=== PATIENT | female | born 1965 | race Caucasian/White ===

== ENCOUNTER → 2017-03-31 | Outpatient (CLI) | payer BC ==
--- NOTE | 2017-04-03 09:59 | MM ---
Reason for exam: screening (asymptomatic). Last mammogram was performed 1 year and 1 month ago. History: Patient is postmenopausal, history of other cancer, and had first child at age 33. Family history of breast cancer in maternal grandmother at age 60. Took hormonal contraceptives for 11 years beginning at age 19. Physical Findings: A clinical breast exam by your physician is recommended on an annual basis and results should be correlated with mammographic findings. MG Screening Mammo w CAD Bilateral CC and MLO view(s) were taken. Prior study comparison: February 23, 2016, bilateral MG screening mammo w CAD. November 05, 2014, bilateral MG screening mammo w CAD. The breast tissue is heterogeneously dense. This may lower the sensitivity of mammography. Finding: There is questionable architectural distortion in the right breast. New finding since February 23, 2016 and November 05, 2014. ASSESSMENT: Incomplete: need additional imaging evaluation, BI-RAD 0 RECOMMENDATION: Special view mammogram of the right breast. If lesion persists on supplemental views, image directed ultrasound is recommended. [facility] will attempt to contact patient to return for supplemental views and ultrasound if indicated.
== END | disposition home or self-care (01) ==
LOC: RADMAMWWP 08:19
PROVIDERS: ATTEND Obstetrics & Gynecology
DX: Z12.31 Encounter for screening mammogram for malignant neoplasm of breast (principal); Z80.3 Family history of malignant neoplasm of breast

== ENCOUNTER → 2017-04-04 | Outpatient (CLI) | payer BC ==
--- NOTE | 2017-04-04 10:49 | MM ---
Reason for exam: additional evaluation requested from abnormal screening. Last mammogram was performed less than 1 month ago. History: Patient is postmenopausal, history of other cancer, and had first child at age 33. Family history of breast cancer in maternal grandmother at age 60. Took hormonal contraceptives for 11 years beginning at age 19. Physical Findings: Nurse did not find any significant physical abnormalities on exam. MG Work Up Mamm w CAD RT Spot compression CC and spot compression MLO view(s) were taken of the right breast. Prior study comparison: March 31, 2017, bilateral MG screening mammo w CAD. February 23, 2016, bilateral MG screening mammo w CAD. November 05, 2014, bilateral MG screening mammo w CAD. August 21, 2013, bilateral digital screening mammo w/CAD. The breast tissue is heterogeneously dense. This may lower the sensitivity of mammography. No distinct lesion persists. These results were verbally communicated with the patient and result sheet given to the patient on 04/04/17. ASSESSMENT: Negative, BI-RAD 1 RECOMMENDATION: Return to routine screening mammogram schedule for both breasts.
== END | disposition home or self-care (01) ==
LOC: RADMAMWWP 08:09
PROVIDERS: ATTEND Obstetrics & Gynecology
DX: R92.8 Other abnormal and inconclusive findings on diagnostic imaging of breast (principal)

== ENCOUNTER → 2018-06-25 | Outpatient (CLI) | payer BC ==
--- NOTE | 2018-06-27 12:07 | MM ---
Reason for exam: screening (asymptomatic). Last mammogram was performed 1 year and 3 months ago. History: Patient is postmenopausal, history of other cancer, and had first child at age 33. Family history of breast cancer in maternal grandmother at age 60. Took hormonal contraceptives for 11 years beginning at age 19. Physical Findings: A clinical breast exam by your physician is recommended on an annual basis and results should be correlated with mammographic findings. MG 3D Screening Mammo W/Cad Bilateral CC and MLO view(s) were taken. Prior study comparison: April 04, 2017, right breast MG work up mamm w CAD RT. March 31, 2017, bilateral MG screening mammo w CAD. The breast tissue is heterogeneously dense. This may lower the sensitivity of mammography. Right lateral middle depth distortion. Left posterior depth 1.6cm upper inner quadrant mass 6.5-7.5cm from nipple. Left slightly medial posterior depth asymmetry. ASSESSMENT: Incomplete: need additional imaging evaluation, BI-RAD 0 RECOMMENDATION: Special view mammogram of both breasts. If lesion persists on supplemental views, image directed ultrasound is recommended. [facility] will attempt to contact patient to return for supplemental views and ultrasound if indicated.
== END | disposition home or self-care (01) ==
LOC: RADMAMWWP 07:53
PROVIDERS: ATTEND Obstetrics & Gynecology
DX: Z12.31 Encounter for screening mammogram for malignant neoplasm of breast (principal); Z80.3 Family history of malignant neoplasm of breast
CPT/HCPCS: 77063; 77067

== ENCOUNTER → 2018-07-17 | Outpatient (CLI) | payer BC ==
--- NOTE | 2018-07-17 11:10 | MM ---
Reason for exam: additional evaluation requested from abnormal screening. Last mammogram was performed 1 month ago. History: Patient is postmenopausal, history of other cancer, and had first child at age 33. Family history of breast cancer in maternal grandmother at age 60. Took hormonal contraceptives for 11 years beginning at age 19. Physical Findings: Nurse did not find any significant physical abnormalities on exam. MG Work Up Mamm w CAD BILAT Bilateral spot compression CC view(s) were taken. CC view(s) were taken of the right breast. Spot compression MLO and spot compression ML view(s) were taken of the left breast. Prior study comparison: June 25, 2018, bilateral MG 3d screening mammo w/cad. April 04, 2017, right breast MG work up mamm w CAD RT. There is a 17 mm oval mass in the left breast upper inner posterior middle position. No distinct lesion persists. ASSESSMENT: Incomplete: need additional imaging evaluation, BI-RAD 0 RECOMMENDATION: Ultrasound of the left breast.
--- NOTE | 2018-07-17 11:23 | USB ---
History: Patient is postmenopausal, history of other cancer, and had first child at age 33. Family history of breast cancer in maternal grandmother at age 60. Took hormonal contraceptives for 11 years beginning at age 19. US Breast Workup Limited LT Left limited breast ultrasound including focal area of concern, retroareolar and axilla demonstrates at the 10 o'clock position a 1.0 x 0.9 x 0.5 cm oval irregular mixed hypoechoic lesion. These results were verbally communicated with the patient and result sheet given to the patient on 07/17/18. ASSESSMENT: Suspicious, BI-RAD 4 RECOMMENDATION: Ultrasound core biopsy of the left breast. Called Dr. Flores with mammographic findings and has scheduled an appointment for the patient for 07/23/18 at 1:[address] Busch for consultation only. PRELIMINARY REPORT CALLED AND FAXED TO DR. BUSCH ON 07/17/18.
== END ==
LOC: RADMAMWWP 08:52
PROVIDERS: ATTEND Obstetrics & Gynecology
DX: R92.8 Other abnormal and inconclusive findings on diagnostic imaging of breast (principal)
CPT/HCPCS: 77066

== ENCOUNTER → 2018-08-07 | Day surgery (SDC) | payer BC ==
[2018-08-07 13:19] VITALS: TEMP 98.3; BMI 30.2
--- NOTE | 2018-08-07 15:04 | USB ---
EXAMINATION TYPE: US biopsy breast VAD LT, Postbiopsy MG diagnostic mammo LT wo CAD DATE OF EXAM: 08/07/2018 CLINICAL HISTORY: 52-year-old female R92.8 ABN MAMMO. TECHNIQUE: Ultrasound guided core biopsy of the left breast. COMPARISON: 07/17/2018 and 06/25/2018 FINDINGS: The procedure of ultrasound guided core biopsy was explained to the patient. Benefits, alternatives, and risks were discussed. An informed consent was then obtained. The patient was placed in supine positioning for imaging and for the procedure. The overlying skin was prepped and draped in usual sterile fashion. Lidocaine buffered with bicarbonate was used as anesthetic into the skin and subcutaneous tissue up to area of concern in the 10:00 left breast. Under ultrasound guidance, a 13-gauge vacuum-assisted biopsy gun device was used to obtain 5 core samples. Following this, a coil clip was left in lesion. The patient tolerated the procedure well without any immediate complication. The patient was kept in the radiology department for short stay after the procedure and then discharged home in stable condition. Post procedure mammogram shows coil clip at the site of mammographic focal asymmetry. IMPRESSION: Successful, uncomplicated ultrasound guided core biopsy of area of concern in the 10:00 left breast corresponding to the mammographic focal asymmetry, full pathology results to follow. 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 Recommendation Follow up ultrasound of the left breast in 6 months. MARY
[2018-08-07 15:41] VITALS: BP 144/85; PULSE 69
== END | disposition home or self-care (01) ==
LOC: RADUSWWP 12:49
PROVIDERS: ATTEND Surgery
DX: D24.2 Benign neoplasm of left breast (principal); N60.82 Other benign mammary dysplasias of left breast
CPT/HCPCS: 77065; 19083; A4648; J2001; 88305

== ENCOUNTER → 2019-02-27 | Outpatient (CLI) | payer BC ==
--- NOTE | 2019-02-27 08:33 | MM ---
Reason for exam: follow-up at short interval from prior study. Last mammogram was performed 7 months ago. History: Patient is postmenopausal, history of other cancer, and had first child at age 33. Family history of breast cancer in maternal grandmother at age 60. Benign US biopsy breast VAD LT of the left breast, August 07, 2018. Took hormonal contraceptives for 11 years beginning at age 19. Physical Findings: Nurse did not find any significant physical abnormalities on exam. MG 3D Diag Mammo W/Cad LT CC and MLO view(s) were taken of the left breast. Prior study comparison: August 07, 2018, left breast MG diagnostic mammo LT wo CAD. July 17, 2018, bilateral MG work up mamm w CAD BILAT. The breast tissue is heterogeneously dense. This may lower the sensitivity of mammography. There are stable left upper inner quadrant masses at middle and posterior depth. No suspicious abnormality. Left biopsy marker noted. These results were verbally communicated with the patient and result sheet given to the patient on 02/27/19. ASSESSMENT: Benign, BI-RAD 2 RECOMMENDATION: Return to routine screening mammogram schedule for both breasts. Back on schedule for May 2019.
== END | disposition home or self-care (01) ==
LOC: RADMAMWWP 07:03
PROVIDERS: ATTEND Obstetrics & Gynecology
DX: R92.8 Other abnormal and inconclusive findings on diagnostic imaging of breast (principal)
CPT/HCPCS: 77061; 77065

== ENCOUNTER → 2019-07-15 | Outpatient (CLI) | payer BC ==
--- NOTE | 2019-07-16 08:47 | MM ---
Reason for exam: screening (asymptomatic). Last mammogram was performed 5 months ago. History: Patient is postmenopausal, history of other cancer, and had first child at age 33. Family history of breast cancer in maternal grandmother at age 60. Benign US biopsy breast VAD LT of the left breast, August 07, 2018. Took hormonal contraceptives for 11 years beginning at age 19. Physical Findings: A clinical breast exam by your physician is recommended on an annual basis and results should be correlated with mammographic findings. MG 3D Screening Mammo W/Cad Bilateral CC and MLO view(s) were taken. Prior study comparison: February 27, 2019, left breast MG 3d diag mammo w/cad LT. August 07, 2018, left breast MG diagnostic mammo LT wo CAD. The breast tissue is heterogeneously dense. This may lower the sensitivity of mammography. Previous mammotome biopsy in the left breast at chronic nodularity. There is no discrete abnormality. ASSESSMENT: Benign, BI-RAD 2 RECOMMENDATION: Routine screening mammogram of both breasts in 1 year.
== END | disposition home or self-care (01) ==
LOC: RADMAMWWP 10:52
PROVIDERS: ATTEND Obstetrics & Gynecology
DX: Z12.31 Encounter for screening mammogram for malignant neoplasm of breast (principal)
CPT/HCPCS: 77063; 77067

== ENCOUNTER → 2020-08-27 | Outpatient (CLI) | payer BC ==
--- NOTE | 2020-08-28 11:15 | MM ---
Reason for exam: screening (asymptomatic). Last mammogram was performed 1 year and 1 month ago. History: Patient is postmenopausal, history of other cancer, and had first child at age 33. Family history of breast cancer in maternal grandmother at age 60. Benign US biopsy breast VAD LT of the left breast, August 07, 2018. Took hormonal contraceptives for 11 years beginning at age 19. Physical Findings: A clinical breast exam by your physician is recommended on an annual basis and results should be correlated with mammographic findings. MG 3D Screening Mammo W/Cad Bilateral CC and MLO view(s) were taken. Prior study comparison: July 15, 2019, bilateral MG 3d screening mammo w/cad. February 27, 2019, left breast MG 3d diag mammo w/cad LT. The breast tissue is heterogeneously dense. This may lower the sensitivity of mammography. Previous mammotome biopsy in the left breast. No significant changes when compared with prior studies. ASSESSMENT: Benign, BI-RAD 2 RECOMMENDATION: Routine screening mammogram of both breasts in 1 year.
== END ==
LOC: RADMAMWWP 13:52
PROVIDERS: ATTEND Obstetrics & Gynecology
DX: Z12.31 Encounter for screening mammogram for malignant neoplasm of breast (principal); Z78.0 Asymptomatic menopausal state; Z80.3 Family history of malignant neoplasm of breast
CPT/HCPCS: 77063; 77067

== ENCOUNTER → 2020-08-27 | Outpatient (CLI) | payer BC ==
--- NOTE | 2020-08-27 15:49 | US ---
EXAMINATION TYPE: US carotid duplex BILAT DATE OF EXAM: 08/27/2020 COMPARISON: NONE CLINICAL HISTORY: I65.29 Occlusion and stenosis of unspecified carot. stenosis EXAM MEASUREMENTS: RIGHT: Peak Systolic Velocity (PSV) cm/sec ----- Right CCA: 110 ----- Right ICA: 147 ----- Right ECA: 116 ICA/CCA ratio: 1.3 RIGHT: End Diastole cm/sec ----- Right CCA: 25.8 ----- Right ICA: 31.7 ----- Right ECA: 12.0 LEFT: Peak Systolic Velocity (PSV) cm/sec ----- Left CCA: 132 ----- Left ICA: 122 ----- Left ECA: 121 ICA/CCA ratio: .9 LEFT: End Diastole cm/sec ----- Left CCA: 38.6 ----- Left ICA: 32.6 ----- Left ECA: 16.3 VERTEBRALS (direction of flow): Right Vertebral: Antegrade Left Vertebral: Antegrade Rhythm: Normal No significant stenosis seen No significant plaque and grayscale images. IMPRESSION: No hemodynamically significant stenosis seen in either internal carotid artery. Criteria for Assigning % of Stenosis / Diameter reduction (Estimation based on the indirect measurements of the internal carotid artery velocities (ICA PSV). 1. Normal (no stenosis)=ICA PSV < 125 cm/s: ratio < 2.0: ICA EDV<40 cm/s. 2. Less than 50% stenosis=ICA PSV < 125 cm/s: ratio < 2.0: ICA EDV<40 cm/s. 3. 50 to 69% stenosis=ICA PSV of 125 to 230 cm/s: ration 2.0 ? 4.0: ICA EDV 40-100 cm/s. 4. Greater than 70% stenosis to near occlusion= ICA PSV > 230 cm/s: ratio > 4.0: ICA EDV > 100 cm/s. 5. Near occlusion= ICA PSV velocities may be low or undetectable: variable ratio and ICA EDV. 6. Total occlusion=unable to detect flow.
== END ==
LOC: RADUSWWP 13:50
PROVIDERS: ATTEND Family Medicine
DX: I65.29 Occlusion and stenosis of unspecified carotid artery (principal)
CPT/HCPCS: 93880

== ENCOUNTER → 2021-08-31 | Outpatient (CLI) | payer BC ==
--- NOTE | 2021-09-01 12:31 | MM ---
Reason for exam: screening (asymptomatic). Last mammogram was performed 1 year ago. History: Patient is postmenopausal, history of other cancer, and had first child at age 33. Family history of breast cancer in maternal grandmother at age 60. Benign US biopsy breast VAD LT of the left breast, August 07, 2018. Took hormonal contraceptives for 11 years beginning at age 19. Physical Findings: A clinical breast exam by your physician is recommended on an annual basis and results should be correlated with mammographic findings. MG 3D Screening Mammo W/Cad Bilateral CC and MLO view(s) were taken. Prior study comparison: July 15, 2019, bilateral MG 3d screening mammo w/cad. February 27, 2019, left breast MG 3d diag mammo w/cad LT. June 25, 2018, bilateral MG 3d screening mammo w/cad. The breast tissue is heterogeneously dense. This may lower the sensitivity of mammography. Previous mammotome biopsy in the left breast. There is chronic nodularity in the left breast. No significant changes when compared with prior studies. ASSESSMENT: Benign, BI-RAD 2 RECOMMENDATION: Routine screening mammogram of both breasts in 1 year.
== END | disposition home or self-care (01) ==
LOC: RADMAMWWP 07:00
PROVIDERS: ATTEND Obstetrics & Gynecology
DX: Z12.31 Encounter for screening mammogram for malignant neoplasm of breast (principal); Z80.3 Family history of malignant neoplasm of breast
CPT/HCPCS: 77063; 77067

== ENCOUNTER → 2022-09-30 | Outpatient (CLI) | payer BC ==
--- NOTE | 2022-09-30 17:07 | CA ---
Transthoracic Echo Report Name: Timothy Muñoz Age: 56 Gender: F : 1965 Exam Date: 09/30/2022 11:31 Exam Location: [place] [facility] Ht (in): 66 Wt (lb): 185 Ordering Physician: Timothy Nevarez DO Attending/Referring Phys: Timothy Nevarez DO Newswriter Juancho Gonzalez [facility] Procedure CPT: Indications: R01.1 Cardiac Hx: HTN; High Cholesterol. Technical Quality: Fair Contrast 1: Total Dose (mL): Contrast 2: Total Dose (mL): MEASUREMENTS (Male / Female) Normal Values 2D ECHO LV Diastolic Diameter PLAX 3.9 cm 4.2 - 5.9 / 3.9 - 5.3 cm LV Systolic Diameter PLAX 2.8 cm LV Fractional Shortening PLAX 28.0 % IVS Diastolic Thickness 1.0 cm 0.6 - 1.0 / 0.6 - 0.9 cm IVS Systolic Thickness 1.2 cm LVPW Diastolic Thickness 1.0 cm 0.6 - 1.0 / 0.6 - 0.9 cm LVPW Systolic Thickness 1.3 cm LV Relative Wall Thickness 0.5 RV Internal Dim ED PLAX 3.2 cm LVOT Diameter 2.0 cm LA Systolic Diameter LX 3.1 cm 3.0 - 4.0 / 2.7 - 3.8 cm LV Diastolic Volume MOD BP 73.5 cm??? 67 - 155 / 56 - 104 cm??? LV Systolic Volume MOD BP 27.9 cm??? 22 - 58 / 19 - 49 cm??? LV Ejection Fraction MOD BP 62.1 % >= 55 % LV Stroke Volume MOD BP 45.6 cm??? LV Diastolic Volume MOD 4C 78.9 cm??? LV Systolic Volume MOD 4C 18.5 cm??? LV Ejection Fraction MOD 4C 76.6 % LV Stroke Volume MOD 4C 60.5 cm??? LV Diastolic Length 4C 7.3 cm LV Systolic Length 4C 5.6 cm LV Diastolic Volume MOD 2C 68.1 cm??? LV Systolic Volume MOD 2C 36.0 cm??? LV Ejection Fraction MOD 2C 47.2 % LV Stroke Volume MOD 2C 32.1 cm??? LV Diastolic Length 2C 7.4 cm LV Systolic Length 2C 6.7 cm Ascending Aorta Diameter 2.1 cm M-MODE Aortic Root Diameter MM 2.4 cm LA Systolic Diameter MM 3.3 cm LA Ao Ratio MM 1.4 MV E Point Septal Separation 0.3 cm AV Cusp Separation MM 1.5 cm DOPPLER AV Peak Velocity 130.1 cm/s AV Peak Gradient 6.8 mmHg LVOT Peak Velocity 120.6 cm/s LVOT Peak Gradient 5.8 mmHg AV Area Cont Eq pk 2.9 cm??? MV Deceleration Wayne 356.8 cm/s??? Mitral E Point Velocity 94.5 cm/s Mitral A Point Velocity 74.0 cm/s Mitral E to A Ratio 1.3 MV Deceleration Time 264.8 ms MV E' Velocity 7.6 cm/s Mitral E to MV E' Ratio 12.4 TR Peak Velocity 174.4 cm/s TR Peak Gradient 12.2 mmHg Right Ventricular Systolic Press 17.2 mmHg PV Peak Velocity 94.7 cm/s PV Peak Gradient 3.6 mmHg FINDINGS Left Ventricle Left ventricular ejection fraction is estimated at 55-60 %. Borderline left ventricular hypertrophy. Grade 1 diastolic dysfunction. Normal systolic function. Right Ventricle Normal right ventricular size and function. Right Atrium Normal right atrial size. Left Atrium Normal left atrial size. Mitral Valve Structurally normal mitral valve. Trace to mild mitral regurgitation. Aortic Valve Trileaflet aortic valve. Tricuspid Valve Mild tricuspid regurgitation. Pulmonic Valve Trace pulmonic regurgitation. Pericardium Normal pericardium. No pericardial effusion. Aorta Normal size aortic root and proximal ascending aorta. CONCLUSIONS Normal LV systolic function Previewed by: Dr. Porter Proctor MD (Electronically Signed) Final Date: 30 September 2022 17:06
== END | disposition home or self-care (01) ==
LOC: RADECHMAIN 11:16
PROVIDERS: ATTEND Family Medicine
DX: R01.1 Cardiac murmur, unspecified (principal)
CPT/HCPCS: 93306

== ENCOUNTER → 2022-10-07 | Outpatient (CLI) | payer BC ==
--- NOTE | 2022-10-07 08:44 | MM ---
Reason for Exam: Screening (asymptomatic). Last mammogram was performed 1 year(s) and 1 month(s) ago. Patient History: Menarche at age 11. First Full-Term at age 33. Late child-bearing (after 30). Postmenopausal. Other cancer. Hormonal Contraceptives for 11 years from age 19 until age 37. 08/07/2018, Benign Core Biopsy on the left side. Maternal grandmother had breast cancer, age 60. Risk Values: Oumou 5 year model risk: 2.1%. NCI Lifetime model risk: 12.5%. Prior Study Comparison: 07/15/2019 Bilateral Screening Mammogram, [facility]. 08/27/2020 Bilateral Screening Mammogram, [facility]. 08/31/2021 Bilateral Screening Mammogram, [facility]. Tissue Density: The breast tissue is heterogeneously dense. This may lower the sensitivity of mammography. Findings: Analyzed By CAD. Left breast biopsy clip. There is no suspicious group of microcalcifications or new suspicious mass in either breast. Overall Assessment: Negative, BI-RAD 1 Management: Screening Mammogram of both breasts in 1 year. A clinical breast exam by your physician is recommended on an annual basis and results should be correlated with mammographic findings. [facility] will attempt to contact patient to return for supplemental views and ultrasound if indicated. Electronically signed and approved by: Michael Anton DO
== END | disposition home or self-care (01) ==
LOC: RADMAMWWP 07:13
PROVIDERS: ATTEND Family Medicine
DX: Z12.31 Encounter for screening mammogram for malignant neoplasm of breast (principal); Z78.0 Asymptomatic menopausal state; Z80.3 Family history of malignant neoplasm of breast
CPT/HCPCS: 77063; 77067

== ENCOUNTER → 2023-10-20 | Outpatient (CLI) | payer BC ==
--- NOTE | 2023-10-20 13:03 | US ---
EXAMINATION TYPE: US venous doppler duplex LE RT DATE OF EXAM: 10/20/2023 12:54 PM COMPARISON: NONE CLINICAL INDICATION: Female, 57 years old with history of [id number] PAIN IN RT LEG; Intermittent right g roin to knee pain x 3 weeks, worsening within last week; Hx HTN and heart murmur SIDE PERFORMED: Right TECHNIQUE: The lower extremity deep venous system is examined utilizing real time linear array sonog salty with graded compression, doppler sonography and color-flow sonography. VESSELS IMAGED: Common Femoral Vein Deep Femoral Vein Greater Saphenous Vein * Femoral Vein Popliteal Vein Small Saphenous Vein * Proximal Calf Veins (* superficial vessels) Right Leg: Negative for DVT Left Leg: NA IMPRESSION: Grayscale, color doppler, spectral doppler imaging performed of the deep veins of the lo wer extremities. There is normal flow, compressibility, vascular waveforms.
--- NOTE | 2023-10-20 18:20 | XR ---
EXAMINATION TYPE: XR femur 2 views RT DATE OF EXAM: 10/20/2023 Comparison: None Clinical History: 57-year-old female M79.604 Pain in right leg Findings: Mild to moderate degenerative change of the right hip with marginal spurring. No acute fracture, subl uxation, dislocation. There is tricompartmental degenerative spurring noted at the knee without joint effusion. Impression: Mild to moderate right hip OA. Tricompartmental degenerative spurring at the knee. No acute osseous a bnormality seen.
== END | disposition home or self-care (01) ==
LOC: RADUSWWP 12:18
PROVIDERS: ATTEND Family Medicine
DX: M16.11 Unilateral primary osteoarthritis, right hip (principal)

== ENCOUNTER → 2023-12-04 | Outpatient (CLI) | payer BC ==
--- NOTE | 2023-12-05 08:12 | MM ---
Reason for Exam: Screening (asymptomatic). Last mammogram was performed 1 year(s) and 2 month(s) ago. Patient History: Menarche at age 11. First Full-Term at age 33. Late child-bearing (after 30). Postmenopausal. Patient has history of breast feeding. Other cancer. Hormonal Contraceptives for 11 years from age 19 until age 37. 08/07/2018, Benign Core Biopsy on the left side. Maternal grandmother had breast cancer, age 60. Risk Values: Oumou 5 year model risk: 2.2%. NCI Lifetime model risk: 12.2%. Prior Study Comparison: 08/27/2020 Bilateral Screening Mammogram, [facility]. 08/31/2021 Bilateral Screening Mammogram, [facility]. 10/07/2022 Bilateral MG 3D screening mammo w/cad, [facility]. Tissue Density: The breasts are heterogeneously dense, which may obscure small masses. Findings: Analyzed By CAD. There is no suspicious group of microcalcifications or new suspicious mass in either breast. A previous biopsy clip marker in the left breast. Benign calcifications. Overall Assessment: Benign, BI-RAD 2 Management: Screening Mammogram of both breasts in 1 year. . Patient should continue monthly self-breast exams. A clinical breast exam by your physician is recommended on an annual basis. This exam should not preclude additional follow-up of suspicious palpable abnormalities. Note on Oumou scores and lifetime risk: 1. A Oumou score greater than 3% is considered moderate risk. If this is the case, consider specialist referral to assess eligibility for a risk reducing agent. 2. If overall lifetime risk for the development of breast cancer is 20% or higher, the patient may qualify for future screening with alternating mammogram and breast MRI. Electronically signed and approved by: Apolinar Jimenez M.D. Radiologis
== END | disposition home or self-care (01) ==
LOC: RADMAMWWP 13:59
PROVIDERS: ATTEND Obstetrics & Gynecology
DX: Z12.31 Encounter for screening mammogram for malignant neoplasm of breast (principal); Z80.3 Family history of malignant neoplasm of breast; Z78.0 Asymptomatic menopausal state
CPT/HCPCS: 77063; 77067

== ENCOUNTER 2023-12-13 12:50 | Day surgery (SDC) | payer BC ==
[2023-12-13] MEDS ORDERED: LIDOCAINE 1% (10MG/ML) FOR IV START INTRADERMA PRN (13:07)
[2023-12-13 13:20] VITALS: RESP 18; TEMP 98
[2023-12-13] MEDS: LACTATED RINGERS 1,000 ML IV SCH (13:21)
[2023-12-13] MEDS: IV FLUID CONTINUATION 1,000 ML IV ONE (13:22)
[2023-12-13] MEDS ORDERED: PROPOFOL 10 MG/ML 20 ML VIAL IV ONE (13:39)
[2023-12-13] MEDS ORDERED: LIDOCAINE 1% INJ 10MG/ML (20 ML MDV) ONE (13:39)
--- NOTE | 2023-12-13 13:46 | P.PCN ---
Date of Procedure: 12/13/23 Procedure(s) Performed: BRIEF HISTORY: Patient is a 57-year-old, pleasant, white female scheduled for an upper endoscopy as a part of evaluation of longstanding history of GERD. She has been on pantoprazole 40 mg daily for more than 10 years with good relief of the symptoms. PROCEDURE PERFORMED: Esophagogastroduodenoscopy biopsy. PREOPERATIVE DIAGNOSIS: Longstanding history of GERD. IV sedation per anesthesia. PROCEDURE: After informed consent was obtained, the patient was brought into the endoscopy unit. IV sedation was administered by Anesthesia under continuous monitoring. Initially the Olympus GIF-140 video endoscope was inserted into the mouth. Esophagus intubated without any difficulty. It was gradually advanced into the stomach and duodenum and carefully examined. The bulb and the second part of the duodenum appeared normal. The scope at this time was withdrawn to the stomach, adequately insufflated with air, and upon careful examination, mucosa of the antrum, body, cardia and the fundus appeared normal. The scope was then withdrawn into the esophagus. Small hiatal hernia noted. The GE junction was located at 39 cm from the incisors. There was a 3 to 4 mm GE junction polyp that was biopsied. The esophagus appeared normal. There were no erosions or ulcerations seen and the patient tolerated the procedure well. IMPRESSION: 1. Small hiatal hernia but no evidence of esophagitis or Jordan's esophagus. 2. 3 mm GE junction polyp s/p biopsy. RECOMMENDATIONS: The findings of this examination were discussed with the patient as well as her family.. She was advised to follow with the biopsy results. Continue with Protonix 40 mg daily and follow antireflux measures
[2023-12-13 14:22] VITALS: BP 107/61; PULSE 57
== END 2023-12-13 14:20 | disposition home or self-care (01) ==
LOC: ORWHC2ENDO 12:50
PROVIDERS: ATTEND Internal Medicine Gastroenterology
DX: K22.82 Esophagogastric junction polyp (principal); K21.9 Gastro-esophageal reflux disease without esophagitis; K44.9 Diaphragmatic hernia without obstruction or gangrene; I10 Essential (primary) hypertension; Z79.899 Other long term (current) drug therapy; Z98.890 Other specified postprocedural states
CPT/HCPCS: 88305; 43239; J2001; J2704